=== PATIENT | male | born 2000 | race Caucasian/White ===

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

== ENCOUNTER 2024-06-01 17:51 | Emergency (ER) | payer OTHER ==
[~2024-06-01] VITALS: Ht 170.2 cm; Wt 77.1 kg
[2024-06-01 18:23] VITALS: BP 136/79
== END 2024-06-01 18:48 | disposition home or self-care (01) ==
LOC: ER 17:51
DX: Z77.21 Contact with and (suspected) exposure to potentially hazardous body fluids (principal); H57.89 Other specified disorders of eye and adnexa; F17.200 Nicotine dependence, unspecified, uncomplicated; Z88.0 Allergy status to penicillin; Z91.012 Allergy to eggs; Z91.018 Allergy to other foods; Z88.8 Allergy status to other drugs, medicaments and biological substances
CPT/HCPCS: 99283